=== PATIENT | female | born 1965 | race Caucasian/White ===

== ENCOUNTER 2019-03-18 09:12 | Inpatient (IN) | payer BC ==
[~2019-03-18 09:12] MED LIST: Dexamethasone 4 MG/ML SDV ONE; Glycopyrrolate 0.2 MG/ML 5 ML MDV ONE; Meropenem 500 MG SDV ONE; Neostigmine Methylsulfate 1 MG/ML 5 ML Syringe ONE; Ondansetron 4 MG/2 ML SDV ONE; Propofol 200 MG/20 ML SDV ONE; Rocuronium 50 MG/5 ML Vial ONE; Succinylcholine 200 MG/10 ML MDV ONE; fentaNYL 250 MCG/5 ML SDV ONE
[2019-03-18] MEDS ORDERED: Rocuronium 50 MG/5 ML Vial ONE (09:50)
[2019-03-18] MEDS ORDERED: Albuterol/Ipratropium 3.0-0.5 MG/3 ML Neb Soln NEB ONE (10:00)
[2019-03-18] MEDS ORDERED: Dextrose 5%-Lactated Ringers 1,000 ML IV SCH (10:00)
[2019-03-18] MEDS ORDERED: Acetaminophen 500 MG Tab PO ONE (10:00)
[2019-03-18] MEDS ORDERED: ceFAZolin 2 GM in Premix Bag 1 BAG IV ONE (10:00)
[2019-03-18] MEDS ORDERED: Scopolamine 1.5 MG Transdermal Patch TOP SCH (10:00)
[2019-03-18] MEDS ORDERED: fentaNYL 250 MCG/5 ML SDV ONE (11:57)
[2019-03-18] MEDS ORDERED: Naloxone 0.4 MG/ML SDV IVPUSH PRN (13:50)
[2019-03-18] MEDS ORDERED: HYDROmorphone/Normal Saline 15 MG/30 ML PCA IV PRN (13:50)
[2019-03-18] MEDS ORDERED: hydrOXYzine HCl 100 MG/2 ML SDV IM ONE (14:05)
[2019-03-18] MEDS ORDERED: Ondansetron 4 MG/2 ML SDV IVPUSH PRN (14:42)
[2019-03-18] MEDS ORDERED: Albuterol/Ipratropium 3.0-0.5 MG/3 ML Neb Soln INH PRN (14:42)
[2019-03-18] MEDS ORDERED: hydrOXYzine HCl 100 MG/2 ML SDV IM PRN (14:43)
[2019-03-18] MEDS ORDERED: Cyclobenzaprine 10 MG Tab PO PRN (14:44)
[2019-03-18] MEDS: Albuterol/Ipratropium 3.0-0.5 MG/3 ML Neb Soln NEB SCH ×2 (16:19→21:32)
[2019-03-18] MEDS: Pantoprazole 40 MG Vial IV SCH (16:26)
[2019-03-18] MEDS: Dextrose 5%-Lactated Ringers 1,000 ML IV SCH (21:24)
[2019-03-18] MEDS: ceFAZolin 2 GM in Premix Bag 1 BAG IV SCH (21:24)
[2019-03-19] MEDS: Dextrose 5%-Lactated Ringers 1,000 ML IV SCH ×2 (03:38→19:42)
[2019-03-19] MEDS: ceFAZolin 2 GM in Premix Bag 1 BAG IV SCH ×3 (03:39→21:23)
[2019-03-19] MEDS: Docusate Sodium 100 MG Cap PO SCH ×2 (09:37→21:24)
[2019-03-19] MEDS: Albuterol/Ipratropium 3.0-0.5 MG/3 ML Neb Soln NEB SCH ×4 (09:37→21:24)
[2019-03-19] MEDS: Pantoprazole 40 MG Vial IV SCH (17:06)
[2019-03-19] MEDS ORDERED: Lactated Ringers 500 ML IV SCH (18:15)
[2019-03-20] MEDS: ceFAZolin 2 GM in Premix Bag 1 BAG IV SCH (04:58)
[2019-03-20] MEDS: Dextrose 5%-Lactated Ringers 1,000 ML IV SCH (05:02)
[2019-03-20] MEDS: Albuterol/Ipratropium 3.0-0.5 MG/3 ML Neb Soln NEB SCH ×4 (07:22→20:52)
[2019-03-20] MEDS ORDERED: Acetaminophen/oxyCODONE 325-5 MG Tab PO PRN (07:41)
[2019-03-20] MEDS ORDERED: Tamsulosin 0.4 MG Cap.ER PO ONE (08:00)
[2019-03-20] MEDS: Mupirocin Oint 22 GM Tube TOP SCH ×2 (08:05→21:34)
[2019-03-20] MEDS: Docusate Sodium 100 MG Cap PO SCH ×2 (08:05→20:52)
[2019-03-20] MEDS: Bisacodyl 5 MG Tab PO SCH ×2 (08:05→20:52)
[2019-03-20] MEDS: Pantoprazole 40 MG Tab.CR PO SCH (17:17)
[2019-03-20] MEDS: Tamsulosin 0.4 MG Cap.ER PO SCH (20:52)
[2019-03-20] MEDS ORDERED: Mupirocin Oint 22 GM Tube ONE (21:05)
[2019-03-20] MEDS: Acetaminophen/HYDROcodone 108-2.5 MG/5 ML Soln 15 ML UD Cup PO PRN (22:22)
[2019-03-21] MEDS: Dextrose 5%-Lactated Ringers 1,000 ML IV SCH (01:47)
[2019-03-21] MEDS: Acetaminophen/HYDROcodone 108-2.5 MG/5 ML Soln 15 ML UD Cup PO PRN ×4 (04:59→19:37)
[2019-03-21] MEDS: Albuterol/Ipratropium 3.0-0.5 MG/3 ML Neb Soln NEB SCH ×4 (07:13→21:23)
--- NOTE | 2019-03-21 08:35 | PN ---
DATE OF SERVICE: 03/21/2019 SUBJECTIVE: Catherine states pain is controlled. She has been up ambulating, has not had a bowel movement yet. Ruiz catheter was recently removed. She had urinary retention yesterday, so a Ruiz catheter was put back in. She has no other questions or concerns today. REVIEW OF SYSTEMS: Remainder of review of systems negative for any pertinent positives and negatives. OBJECTIVE: GENERAL: Catherine Mosquera is a 54-year-old female. Alert, orientated. Color pale. VITAL SIGNS: TPR 97, 103, 18, blood pressure 121/71. HEENT: Negative. NECK: Supple. HEART: Regular rate and rhythm. LUNGS: Clear ABDOMEN: Aquacel dressing is on. Abdominal binder is on. EXTREMITIES: Without peripheral edema. ASSESSMENT: Exploratory laparotomy with lysis of extensive adhesions and; 1. Repair of recurrent incarcerated incisional hernia with mesh and placement of Vicryl mesh. Date of surgery: 03/18/2019. Surgeon: Jason Sim MD. PLAN: 1. Discontinue Aquacel dressing. 2. May shower. 3. Discontinue Ruiz catheter. 4. Saline lock IV. 5. Planned discharge in a.m. after the patient has a bowel movement. Charley Mendez PA-C /[id number]
[2019-03-21] MEDS: Docusate Sodium 100 MG Cap PO SCH ×2 (09:11→21:23)
[2019-03-21] MEDS: Mupirocin Oint 22 GM Tube TOP SCH ×2 (09:11→21:23)
[2019-03-21] MEDS: Bisacodyl 5 MG Tab PO SCH ×2 (09:12→21:23)
--- NOTE | 2019-03-21 11:35 | PN ---
DATE OF SERVICE: 03/19/2019 The patient is postoperative day #1 from repair of two larger incisional hernias with mesh. No issues overnight. Urine output has been adequate. Vital signs otherwise stable. The PATRICIA drain is becoming more serous in terms of output. Overall, appeared to be doing well. We will back down the IV rate. Ruiz catheter will come out. We will begin a step-3 diet along with some stool softener. We will continue the [employer] for pain control today. Probably, go to just some oral pain medication . Jason Sim MD /[id number]
--- NOTE | 2019-03-21 12:35 | PN ---
DATE OF SERVICE: 03/20/2019 The patient has been afebrile with stable vital signs. urine yesterday, so Ruiz catheter was placed back in and we will start some Flomax today. Otherwise, switch her over to oral pain medication, continue some bowel stimulation, and she may be ready for discharge to home tomorrow. Jason Sim MD /[id number]
[2019-03-21] MEDS: Pantoprazole 40 MG Tab.CR PO SCH (16:32)
[2019-03-21] MEDS: Tamsulosin 0.4 MG Cap.ER PO SCH (21:23)
[2019-03-22] MEDS: Acetaminophen/HYDROcodone 108-2.5 MG/5 ML Soln 15 ML UD Cup PO PRN ×3 (06:43→18:32)
[2019-03-22] MEDS: Albuterol/Ipratropium 3.0-0.5 MG/3 ML Neb Soln NEB SCH ×4 (07:26→20:42)
[2019-03-22] MEDS: Bisacodyl 5 MG Tab PO SCH ×2 (08:28→20:41)
[2019-03-22] MEDS: Docusate Sodium 100 MG Cap PO SCH ×2 (08:28→20:41)
[2019-03-22] MEDS: Mupirocin Oint 22 GM Tube TOP SCH ×2 (08:29→20:41)
[2019-03-22] MEDS ORDERED: Polyethylene Glycol 3350 Powder 119 GM Bottle PO ONE ×2 (09:00→10:00)
[2019-03-22] MEDS ORDERED: Polyethylene Glycol 3350 Powder 119 GM Bottle PO PRN (12:00)
[2019-03-22] MEDS ORDERED: Furosemide 20 MG/2 ML VIAL IVPUSH ONE (14:32)
[2019-03-22] MEDS: Pantoprazole 40 MG Tab.CR PO SCH (16:33)
[2019-03-22] MEDS: Tamsulosin 0.4 MG Cap.ER PO SCH (20:41)
[2019-03-23] MEDS: Acetaminophen/HYDROcodone 108-2.5 MG/5 ML Soln 15 ML UD Cup PO PRN ×2 (00:56→08:36)
[2019-03-23] MEDS: Albuterol/Ipratropium 3.0-0.5 MG/3 ML Neb Soln NEB SCH (07:24)
[2019-03-23] MEDS: Bisacodyl 5 MG Tab PO SCH (08:36)
[2019-03-23] MEDS: Docusate Sodium 100 MG Cap PO SCH (08:36)
[2019-03-23] MEDS: Mupirocin Oint 22 GM Tube TOP SCH (08:37)
--- NOTE | 2019-03-23 13:54 | DISCH ---
ADMISSION DIAGNOSES: 1. Two large ventral hernias. 2. Status post Ze-en-Y gastric bypass surgery. 3. Weight regain. 4. Postsurgical malabsorption, classified elsewhere. 5. B12 deficiency. 6. Vitamin B complex. 7. Asthma. 8. Vitamin D deficiency. 9. Morbid obesity, BMI 48. 10.Iron deficiency anemia. DISCHARGE DIAGNOSES: Exploratory laparotomy with lysis of extensive adhesions and; 1. Repair of incarcerated incisional hernia with mesh and placement of Vicryl mesh for recurrent incarcerated incisional hernias and extensive intraabdominal adhesions. Date of surgery: 03/18/2019. Surgeon: Jason Sim MD. HISTORY: Catherine Mosquera is a 54-year-old female with longstanding history of two ventral hernias. After preoperative evaluation and discussion of possible risks and possible complications, she wished to proceed with surgical procedure. HOSPITAL COURSE: Catherine had her surgery on 03/18/2019. She had no operative complications. On postoperative day #1, her IV was decreased to 100 mL per hour. Ruiz was discontinued. She was started on step 3 gastric bypass diet and Colace. On 03/20/2019, her Ruiz had to be replaced due to urinary retention. She was started on Flomax 0.4 mg. NEON TU[employer] BENDER was discontinued and started on Percocet and/or bowel stimulation. On 03/21/2019, she was switched to oral pain. Throughout the last 24 hours, she was switched to liquid pain medication thinking that she would have better absorption. She was given bowel stimulation and she did not have any bowel movement. On 03/22/2019, she was given MiraLax 119 g. She did have a bowel movement. Her pain has been controlled, her activity is good, vital signs stable, and she is able to be discharged to home. She did have a Physical Therapy consult who did recommend a walker when she is home for stability and after surgery. PHYSICAL EXAMINATION: GENERAL: Catherine Mosquera is a 54-year-old female. VITAL SIGNS: Height is 5 feet, weight is 249 pounds, BMI 48.7. TPR is 95.5, 89, 16, blood pressure 123/88. HEENT: Negative. NECK: Supple. HEART: Regular rate and rhythm. LUNGS: Clear. ABDOMEN: [place] intact. Abdominal binder is on. EXTREMITIES: Without peripheral edema. DISPOSITION: Discharged to home. CONDITION: Stable and improving. FOLLOWUP APPOINTMENT: Charley Mendez PA-C, 03/30/2019 at 11:30 a.m. HOME MEDICATIONS: 1. Flexeril 10 mg q.6 hours p.r.n. muscle spasms #30. 2. [place] 5/325 mg one tablet every 6 hours p.r.n. pain #28. 3. Bactroban ointment to place around PATRICIA drain. She is to resume home medication of albuterol sulfate, two inhalations every 6 hours p.r.n. shortness of breath; Temovate 0.05% ointment, 1 applicator topical twice daily; vitamin D2 50,000 units three times a week; and discontinue Aleve or naproxen. DIET: Usual diet as tolerated. Drink 8 to 10 glasses of water a day. ACTIVITY: No lifting greater than 10 pounds for 6 weeks. Other activity: Walk at least 6 times daily inside your home. Driving: Do not drive for 1 week and while on pain medication. Shower/bathing: May shower. DISCHARGE INSTRUCTIONS: 1. Notify provider if any fever, increased pain, nausea, or vomiting. Keep site clean and dry. Wound incision care. Wear abdominal binder for 6 weeks and then as tolerated. 2. Wear pressure dressing over former hernia sites for 6 weeks. 3. Strip, empty, measure, and record PATRICIA drain four times a day and bring record of drainage to clinic appointment. 4. Use incentive spirometer 10 times every hour while awake.
--- NOTE | 2019-03-25 17:53 | PN ---
DATE OF SERVICE: 03/22/2019 The patient has been afebrile with stable vital signs. No flatus or bowel movement as of yet. Given this, we will give her some MiraLAX this morning and repeat that this afternoon. Once we get the bowels going, she will likely be ready for discharge home most likely tomorrow. Jason Sim MD /[id number]
--- NOTE | 2019-03-28 11:10 | OR ---
DATE OF PROCEDURE: 03/18/2019 PREOPERATIVE DIAGNOSIS: Recurrent incarcerated incisional hernia. POSTOPERATIVE DIAGNOSIS: 1. Recurrent incarcerated incisional hernia. 2. Extensive intraabdominal adhesions. PROCEDURES PERFORMED: Exploratory laparotomy with lysis of extensive adhesions. 1. Repair of recurrent incarcerated incisional hernia with mesh (64931, [id number]). 2. Placement of Vicryl mesh to limit recurrent adhesion formation between pelvic and abdominal wall and underlying viscera (50212). ANESTHESIA: General. API ARCHITECT: Charley Mendez PA-C. INDICATIONS FOR PROCEDURE: This is a 54-year-old status post Ze-en-Y gastric bypass done in [facility] in 2005. This involved quite a bit in way of complications and included as time went by a hernia repair with a biocomposite mesh, in that the patient has a large recurrent hernia in the central abdomen and extending to the left quite a bit as well, and plan is to proceed with open laparotomy with repair of the hernia with mesh technique. The potential risks of the procedure including bleeding, infection, possibility of inability to use the mesh making recurrence rate quite high if open bowel was encountered during the procedure, the possibility of recurrence of the hernia as well as possibility of cardiopulmonary, septic, or hemorrhagic complications leading to were all discussed, and the patient wishes to proceed. DETAILS OF PROCEDURE: The patient was taken to the operating room and placed in a supine position. After general endotracheal anesthesia was induced, a Ruiz catheter was inserted, and the abdomen prepped and draped. A midline incision was then made and carried down through the skin and subcutaneous tissue, and taken down to roughly the level of the umbilicus. The upper aspect of the incision included some intact mesh, this was divided and the peritoneal cavity entered. The patient had quite extensive adhesions and 2 components of the hernia, one more or less in the midline, one downward toward the umbilicus, and then a large extension leftward, which went well back on to her left flank. Once these adhesions were taken down and the hernia reduced, the bowel was inspected and found to be otherwise intact. The hernia sac was then excised and initially the defect running laterally toward the left was closed at the fascia level from within using a #2 Vicryl stitch. A Fidel- Arevalo drain was then placed through the stab wound inferior to that segment of the hernia and placed in that area, as this certainly will be a risk for significant stromal formation. At this point, a biocomposite mesh measuring 27 x 33 cm was selected. This was oriented with a transverse orientation, as this appeared to cover up the lateral extension of the hernia to leftward as well as the central abdominal portion of the hernia quite well. 2-0 Vicryl sutures were placed circumferentially around the polypropylene side of the mesh, and after irrigating the abdomen with meropenem and Zyvox containing saline solution, mesh was placed in a peritoneal location. A premarked location of the mesh was then pulled up with the suture being pulled through the stab wounds, thus fixing the mesh well away from the remaining fascial edges. When this was mcc completed, a 12-inch square area of Vicryl mesh was then selected and placed underneath the abdominal wall and down toward the pelvis to limit recurrent adhesion formation between the pelvic and abdominal wall and the underlying viscera. Ventrio ST mesh was then finished in terms of being pulled up. The mesh was then fixed with titanium tacking screws on the underlying shelf circumferentially as well to help fix the mesh in general position. Prior to placement of the mesh, the bilateral transversus abdominis plane blocks had been also placed. At this point, the portion of the previously divided biocomposite Marlex mesh was reapproximated with running 0 Prolene stitch and pulled that and the fascia closed with #2 Vicryl stitch and the subcutaneous tissue then approximated with 2 layers of 3-0 and 4-0 Vicryl stitch deep and cyrus for the skin. Dressing was applied. The patient was taken to the recovery room in satisfactory condition. There were no evident complications. Physician hospital aides and assistants teacher, Charley Mendez, played an essential role in assisting in this case helping to position the patient, retract structures as needed, as well as suturing and stapling as indicated. Her presence improved patient safety and decreased operative time. Jason Sim MD /[id number]
== END 2019-03-23 12:10 | disposition home or self-care (01) | DRG 227 ==
LOC: JP.SDS 09:12 → JP.MS 09:12 → EDSTATUS 11:40 → JP.MS 15:26
PROVIDERS: ADMIT Surgery; ATTEND Surgery
PROC: 0WUF0JZ Supplement Abdominal Wall with Synthetic Substitute, Open Approach (ICD-10-PCS; principal; 2019-03-18)
PROC: 3E0M05Z Introduction of Adhesion Barrier into Peritoneal Cavity, Open Approach (ICD-10-PCS; 2019-03-18)
PROC: 0DNW0ZZ Release Peritoneum, Open Approach (ICD-10-PCS; 2019-03-18)
DX: K43.0 Incisional hernia with obstruction, without gangrene (principal); K91.2 Postsurgical malabsorption, not elsewhere classified; K66.0 Peritoneal adhesions (postprocedural) (postinfection); E53.8 Deficiency of other specified B group vitamins; J45.909 Unspecified asthma, uncomplicated; Z98.84 Bariatric surgery status; Z98.0 Intestinal bypass and anastomosis status; E53.9 Vitamin B deficiency, unspecified; E55.9 Vitamin D deficiency, unspecified; D50.9 Iron deficiency anemia, unspecified; E66.01 Morbid (severe) obesity due to excess calories; Z68.42 Body mass index [BMI] 45.0-49.9, adult; R33.9 Retention of urine, unspecified
CPT/HCPCS: 36415; 51702; 80053; 82607; 82728; 83735; 84100; 85027; 88302; 94640; 94762; A9270-GY; C1713; C1781; C9113; J0171; J0330; J0690; J1100; J1170; J1940; J2020; J2185; J2405; J2704; J2710; J2795; J3010; J3490; J7042; J7050; J7620-GY